=== PATIENT | female | born 1980 | race Caucasian/White ===

== ENCOUNTER 2019-01-09 10:42 | Day surgery (SDC) | payer OTHER ==
[~2019-01-09 10:42] MED LIST: PROPOFOL INJ 200 MG/20 ML VIAL IV ONE
[2019-01-09 12:22] VITALS: BP 110/65
--- NOTE | 2019-01-09 12:47 | Operative Report ---
Operative Report DATE OF SURGERY: 01/09/19 Operative Report: The risks benefits and alternatives of the procedure explained to the patient in detail and informed consent is obtained.A GIF Olympus video scope was inserted into the patient's mouth and hypopharynx, the esophagus is identified intubated and insufflated, the scope was then advanced through the esophagus stomach and duodenum, retroflexion maneuver is done, the esophagus stomach and first and second portions of the duodenum examined. PREOPERATIVE DIAGNOSIS: Confirmation of possible celiac disease. Dyspepsia POSTOPERATIVE DIAGNOSIS: Duodenitis status post biopsy rule out celiac sprue. Gastritis status post biopsy rule out H. pylori OPERATION: EGD with biopsy SURGEON: STEPHEN LADD ANESTHESIA: LMAC TISSUE REMOVED OR ALTERED: As noted above. COMPLICATIONS: None. ESTIMATED BLOOD LOSS: None. INTRAOPERATIVE FINDINGS: As noted above. PROCEDURE: Patient tolerated the procedure well. No immediate postprocedure complications are noted. Patient discharged in good condition. Discharge date 01/09/2019. Discharge diet: Regular. Discharge activity: Regular. 2-3-week follow-up to discuss findings. Patient is instructed to call the office or proceed to the emergency room should there be any further proximal questions. I will wait on the pathology.
== END 2019-01-09 12:10 | disposition home or self-care (01) ==
LOC: END 10:42
PROVIDERS: ATTEND Internal Medicine Gastroenterology
DX: K29.80 Duodenitis without bleeding (principal); K29.50 Unspecified chronic gastritis without bleeding; R94.5 Abnormal results of liver function studies; K90.0 Celiac disease; E78.5 Hyperlipidemia, unspecified
CPT/HCPCS: 43239; 88305 ×2; 88312 ×2; J2704; 731